=== PATIENT | female | born 1955 | race Caucasian/White ===

== ENCOUNTER 2024-06-21 01:10 | Inpatient (IN) ==
[2024-06-21] MEDS ORDERED: IOPAMIDOL 100 ML BOTTLE IV ONE ×2 (01:11)
[2024-06-21] MEDS: morphine 2 MG/ML VIAL IM ONE (02:30)
[2024-06-21] MEDS: BISACODYL 10 MG SUPP.RECT PR ONE ×3 (02:30→08:01)
[2024-06-21] MEDS: MAGNESIUM CITRATE 300 ML ORAL.SOL PO ONE (02:30)
[2024-06-21] MEDS: ONDANSETRON 4 MG ODT TABLET SL ONE (03:59)
[2024-06-21] MEDS: 0.9 % SODIUM CHLORIDE 1,000 ML IV ONE (07:42)
[2024-06-21] MEDS: METOCLOPRAMIDE 10 MG/2 ML VIAL IV ONE (07:42)
[2024-06-21 08:13] LABS: Basophils # (Auto) 0.04 K/mcL (0.00-0.30); Basophils % (Auto) 0.4 % (0.0-2.0); Eosinophils # (Auto) 0.66 K/mcL (0.00-0.70); Eosinophils % (Auto) 5.8 % (0.0-7.0); Hematocrit 41.1 % (34.1-44.9); Hemoglobin 13.1 g/dL (11.2-15.7); Lymphocytes # (Auto) 1.99 K/mcL (1.50-4.80); Lymphocytes % (Auto) 17.5 % (15.5-49.0); Mean Cell Volume 89.2 fL (80.0-100.0); Mean Corpuscular HGB Conc 31.9 g/dL (31.0-36.0); Mean Platelet Volume 9.8 fL (8.8-12.5); Monocytes # (Auto) 0.69 K/mcL (0.10-0.90); Monocytes % (Auto) 6.1 % (1.0-12.0); Platelet Count 304 K/mcL (140-440); RBC 4.61 M/mcL (3.59-5.38); Red Cell Distribution Width 12.9 % (11.5-14.5); WBC 11.4 K/mcL (4.5-11.0)
[2024-06-21 08:31] LABS: ALT/SGPT 10 U/L (<40); AST/SGOT 21 U/L (<32); Albumin 4.4 gm/dL (3.2-5.2); Albumin/Globulin Ratio 1.3 (1.0-2.3); Alkaline Phosphatase 155 U/L (39-117); Bilirubin,Total 0.3 mg/dL (0.1-1.0); Blood Urea Nitrogen 21 mg/dL (8-23); Calcium 9.4 mg/dL (8.6-10.4); Carbon Dioxide 27 mmol/L (22-30); Chloride 102 mmol/L (96-108); Globulin 3.4 gm/dL (2.2-3.7); Glomerular Filtration Rate 75; Glucose 112 mg/dL (70-105); Sodium 140 mmol/L (133-145)
[2024-06-21] MEDS: cefTRIAXone 1 GM VIAL IV ONE (09:40)
[2024-06-21] MEDS: metroNIDAZOLE 500 MG/100 ML BAG IV ONE (09:44)
[2024-06-21 10:56] LABS: C-Reactive Protein 1.26 mg/dL (0.03-0.80)
[2024-06-21] MEDS ORDERED: ONDANSETRON 4 MG/2 ML VIAL IV PRN (12:13)
[2024-06-21] MEDS ORDERED: BISACODYL 10 MG SUPP.RECT PR PRN (12:13)
[2024-06-21] MEDS ORDERED: DOCUSATE SODIUM 100 MG CAPSULE PO PRN (12:57)
[2024-06-21] MEDS ORDERED: LORazepam 0.5 MG TABLET PO PRN (12:57)
[2024-06-21] MEDS: IPRATROPIUM/ALBUTEROL 3 ML AMPUL.NEB NEB SCH (13:02)
[2024-06-21] MEDS: CARBIDOPA/LEVODOPA 25/100 TABLET PO ONE (13:12)
[2024-06-21] MEDS: VITAMIN B COMPLEX 1 CAPSULE PO SCH (14:32)
[2024-06-21] MEDS: GABAPENTIN 300 MG CAPSULE PO SCH (14:32)
[2024-06-21] MEDS: 0.9 % SODIUM CHLORIDE 10 ML SYRINGE IV SCH (14:33)
[2024-06-21] MEDS: POLYETHYLENE GLYCOL 3350 17 GM PACKET PO SCH (16:57)
[2024-06-21] MEDS: CYCLOBENZAPRINE 10 MG TABLET PO PRN (18:47)
[2024-06-21] MEDS: oxyCODONE/APAP 5/325MG TABLET PO PRN (19:49)
[2024-06-21] MEDS: LIDOCAINE 4% TOP PATCH TOPICAL PRN (20:04)
[2024-06-21] MEDS: SENNOSIDES 1 TABLET PO SCH (20:05)
[2024-06-21] MEDS: MAGNESIUM OXIDE 400 MG TABLET PO SCH (20:06)
[2024-06-21] MEDS: ACETAMINOPHEN 325 MG TABLET PO PRN (20:06)
[2024-06-21] MEDS: CARBIDOPA/LEVODOPA 25/100 TABLET PO SCH (20:06)
[2024-06-22 07:03] LABS: Basophils # (Auto) 0.03 K/mcL (0.00-0.30); Basophils % (Auto) 0.4 % (0.0-2.0); Eosinophils # (Auto) 0.39 K/mcL (0.00-0.70); Eosinophils % (Auto) 5.1 % (0.0-7.0); Hematocrit 35.3 % (34.1-44.9); Hemoglobin 11.3 g/dL (11.2-15.7); Lymphocytes # (Auto) 1.51 K/mcL (1.50-4.80); Lymphocytes % (Auto) 19.9 % (15.5-49.0); Mean Cell Volume 90.3 fL (80.0-100.0); Mean Platelet Volume 10.3 fL (8.8-12.5); Monocytes # (Auto) 0.44 K/mcL (0.10-0.90); Monocytes % (Auto) 5.8 % (1.0-12.0); Neutrophils % (Auto) 68.5 % (38.0-78.0); Platelet Count 228 K/mcL (140-440); RBC 3.91 M/mcL (3.59-5.38); Red Cell Distribution Width 12.8 % (11.5-14.5); WBC 7.6 K/mcL (4.5-11.0)
[2024-06-22 07:15] LABS: ALT/SGPT < 5 U/L (<40); AST/SGOT 14 U/L (<32); Albumin 3.6 gm/dL (3.2-5.2); Albumin/Globulin Ratio 1.4 (1.0-2.3); Alkaline Phosphatase 113 U/L (39-117); Bilirubin,Direct < 0.2 mg/dL (0-0.3); Bilirubin,Total 0.5 mg/dL (0.1-1.0); Blood Urea Nitrogen 12 mg/dL (8-23); Calcium 8.7 mg/dL (8.6-10.4); Carbon Dioxide 29 mmol/L (22-30); Chloride 104 mmol/L (96-108); Globulin 2.5 gm/dL (2.2-3.7); Glomerular Filtration Rate 89; Glucose 97 mg/dL (70-105); Lactate Dehydrogenase 210 U/L (135-225); Phosphorous 3.6 mg/dL (2.5-4.5); Potassium 3.7 mmol/L (3.3-5.1); Sodium 141 mmol/L (133-145); Triglycerides 54 mg/dL (<150); Uric Acid 4.4 mg/dL (2.5-8.0)
[2024-06-22] MEDS: ENOXAPARIN 40 MG/0.4 ML SYRINGE SQ SCH (09:31)
[2024-06-22] MEDS: ESCITALOPRAM 20 MG TABLET PO SCH (09:31)
[2024-06-22] MEDS ORDERED: IPRATROPIUM/ALBUTEROL 3 ML AMPUL.NEB NEB PRN (11:59)
[2024-06-22] MEDS: CARBIDOPA/LEVODOPA 25/100 TABLET PO SCH (12:46)
== END 2024-06-22 16:26 | disposition home or self-care (01) | DRG 177 ==
LOC: ED 01:10 → ICU 12:04 → MEDSUR 06-22 13:04
PROVIDERS: ADMIT Student in an Organized Health Care Education/Training Program; ATTEND Student in an Organized Health Care Education/Training Program